=== PATIENT | female | born 1985 | race Caucasian/White ===

== ENCOUNTER → 2017-11-12 07:10 | Outpatient (CLI) | payer BC, SELFPAY | DX: R19.7 Diarrhea, unspecified (principal) | CPT/HCPCS: 82274; 83630; 87177; 87209; 87493; 87506 ==

== ENCOUNTER → 2017-11-23 14:22 | Outpatient (CLI) | payer BC, SELFPAY ==
[2017-11-23 17:00] LABS: Thyroid Stim Hormone (TSH) 0.45 uIU/mL (0.358-3.74)
== END ==
DX: E04.2 Nontoxic multinodular goiter (principal)
CPT/HCPCS: 36415; 84443

== ENCOUNTER 2017-11-30 06:28 | Emergency (ER) | payer BC, SELFPAY ==
[2017-11-30 06:30] VITALS: BP 128/74; PULSE 90; RESP 20; TEMP 36.8; O2SAT 96; BMI 22.4
--- NOTE | 2017-11-30 06:43 | CT_ITS ---
STUDY: CT ABDOMEN AND PELVIS WITHOUT CONTRAST REASON FOR EXAM: Female, 32 years old. Back pain with current UTI RADIATION DOSAGE (If Supplied By Facility): CTDIvol = ( 7.72 ) mGy, DLP = ( 393.70 ) mGycm TECHNIQUE: Transaxial images were obtained from the dome of the diaphragm to the symphysis pubis without oral contrast, and without intravenous contrast. Sagittal and coronal images were reconstructed. Individualized dose optimization techniques were used for this CT. COMPARISON: None. FINDINGS: Small amount of bibasilar airspace disease with trace right effusion. The visualized portions of the heart are within normal limits. Normal liver. Normal gallbladder and extrahepatic biliary system. Normal spleen. Normal pancreas. Normal bilateral adrenal glands. Normal right kidney. Normal left kidney. Normal visualized stomach. Normal small intestine. Normal colon. The appendix is visualized and appears normal. Mildly hyperdense material seen within the appendix; this could represent retained contrast from prior study versus appendicolith Normal abdominal aorta. Normal inferior vena cava. Normal retroperitoneum. Normal urinary bladder. Normal visualized uterus. Normal abdominal wall. Normal osseous structures. CT/Abdomen/Pelvis without Cont IMPRESSION: Small amount of nonspecific bibasilar airspace disease with trace right effusion. Infection is not fully excluded. Normal appendix. Remainder as above. Electronically Signed: Cricket Ivan DO at 8:05 EDT Tel , Service support ,
[2017-11-30] MEDS: Ondansetron 4 MG/2 ML Vial IV (06:52)
[2017-11-30] MEDS: 0.9% Normal Saline 1,000 ML 1000 ML IV (06:52)
[2017-11-30] MEDS: Ketorolac 30 MG/ML Syringe IV (06:53)
[2017-11-30] MEDS: Morphine 4 MG/ML Syringe IV (06:54)
[2017-11-30 07:06] LABS: Absolute Lymphocyte Count 2.28 X10^3/ul (0.83-4.51); Absolute Neutrophil Count 2.8 X10^3/uL (2.0-7.7); Basophil# 0.13 X10^3/uL; Basophil% 2.2 % (0-1); Eosinophil# 0.03 X10^3/uL; Eosinophils% 0.5 % (0-5); Hematocrit 38.6 % (37-47); Hemoglobin 13.2 g/dl (12.0-15.0); Lymphocyte # 2.28 X10^3/ul (4.0); Lymphocyte % 39.4 % (19-41); Mean Corp Hgb Conc 34.2 g/gl (32-36); Mean Corpuscular Hgb 29.3 pg (27.0-32.0); Mean Corpuscular Volume 85.8 fL (81-99); Mean Platelet Vol. 9.8 fl (6.2-12.0); Monocyte# 0.53 X10^3/uL; Monocyte% 9.2 % (0-10); Neutrophil # 2.81 X10^3/uL (2.7-7.7); Neutrophil % 48.5 % (47-70); Platelet Count 147 K/mm3 (150-450); RBC Distribution Width SD 36.9 fl (35.1-43.9); White Blood Count 5.8 K/mm3 (4.4-11.0)
[2017-11-30 07:08] LABS: Differential Indicated SCAN CRITERIA MET; POSITIVE COUNT NO; POSITIVE DIFFERENTIAL NO; POSITIVE MORPHOLOGY YES
[2017-11-30 07:14] LABS: Anion Gap 11 (5-15); BUN 10 mg/dL (7-18); BUN/Creat Ratio 10.9 RATIO (10-20); Calcium,Total 8.5 mg/dL (8.5-10.1); Chloride 102 mmol/L (98-107); Creatinine, Serum 0.92 mg/dL (0.55-1.02); EST Glomerular Filtration Rate 75 mL/min (>60); Est Glom Filt Rate - Afr Amer 91 mL/min (>60); Estimated Creatinine Clearance 78.99 ml/min; Glucose 132 mg/dL (74-106); Potassium 3.2 mmol/L (3.5-5.1); Sodium Level 135 mmol/L (136-145)
[2017-11-30 07:37] LABS: Pregnancy, Serum, hCG Quali. NEGATIVE Negative (0-9 Nonpreg)
--- NOTE | 2017-11-30 07:56 | ED.VISSUMM ---
- ER Visit Summary Date of Service: 11/30/17 Chief Complaint: Flank pain History of Present Illness: The patient is a 32 F for an 8 day history of back pain which wraps around to her right abdomen. She was seen at [facility]. Patient reportedly was called 2 days later with positive urine culture and was started on Macrobid and Keflex. Patient presents today because her pain is not improved. She had some nausea and vomiting this morning. She has not noted fever. Past history significant for hypothyroidism and PCOS. Last menstrual cycle surprise me 10 days ago. Physical Examination: Vital signs are unremarkable. Patient is afebrile. Patient sitting upright in bed no acute distress. Heart is regular rate and rhythm. Lung sounds are clear. Abdomen is soft with no anterior abdominal tenderness. Back examination reveals tenderness of the lower lumbar paraspinals bilaterally. She does have mild right CVA tenderness. Test Results: CBC reveals normal white count. Platelet count is 147,000. Chemistry studies significant for potassium 3.2. test negative. CT scan of the flank reveals small bibasilar airspace disease with trace right effusion. Normal kidneys. Normal appendix. Emergency Department Course and Treatment: Patient is given morphine, Toradol, Zofran, and IV fluids. Upon completion of blood work she is given 40 mEq of potassium chloride. Urine sample has been sent to the lab. This will be checked by oncoming physician. Treatment Plan: [] Disposition: Anticipated discharge Impression: Right flank pain This note was generated with [employer] dictation software. It may contain incorrect words, spelling, and punctuation that were not noted in review of the chart prior to signing ED Disposition - Plan for ED Patient: Chief Complaint: Flank Pain Referrals: Care Physician,No Primary [Primary Care Provider] -
[2017-11-30] MEDS: 0.9% Normal Saline 1,000 ML 150 ML IV (08:00)
[2017-11-30 08:45] LABS: Mucous, Urine 0 SEEN /hpf (<or=2+)
[2017-11-30 08:50] LABS: Color, Urine Yellow (Yellow); Glucose, Dipstick Normal (Normal); Ketone-Dipstick 15 mg/dl (Negative); Leukocyte Esterase-Dipstick 500 /ul (Negative); Nitrite-Dipstick Negative (Negative); Occult Blood-Urine Negative /ul (Negative); Protein-Dipstick Negative (Negative); Specific Gravity, Urine 1.005 (1.002-1.030); Urine Bilirubin Dipstick Negative (Negative); Urine Clarity Sl. Cloudy (Clear); Urine Urobilinogen Normal (Normal); Urine pH 6.5 (5.0 - 8.0)
[2017-11-30 09:02] LABS: Red Blood Cells-Urine 0-5 SEEN /hpf (0-5); Squamous Epithelial Cells - UA 0-5 SEEN /hpf (5-10); White Blood Cells 10-25 SEEN /hpf (0-5)
[2017-11-30 09:03] LABS: Bacteria 1+ /hpf (None Seen)
--- NOTE | 2017-11-30 09:16 | US_ITS ---
STUDY: ABDOMINAL ULTRASOUND - RIGHT UPPER QUADRANT REASON FOR VISIT: Female, 32 years old. Right upper quadrant pain TECHNIQUE: Ultrasound evaluation of the right upper quadrant was performed with real-time and static mcpherson-scale imaging. TECHNICAL QUALITY: Adequate. COMPARISON: None. FINDINGS: Liver: The liver measures 13.9 cm. There is normal echogenicity of the liver. The bile ducts are within normal limits. There is hepatic color flow. The direction of portal flow is hepatopetal. There is no demonstrated mass lesion. Gallbladder: Normal distended gallbladder. The gallbladder wall measures 3 mm. There is a negative sonographic Mcgarry's sign. There is no pericholecystic fluid. There are no gallstones. Common Bile Duct (C.B.D.): The common bile duct measures 3 mm. Pancreas: Normal size of the head, body and tail of the pancreas. There is normal echogenicity of the pancreas. There is no demonstrated pancreatic mass or cyst. Right Kidney: Normal size of the right kidney. The right kidney measures 11.1 cm. Normal renal cortex. The right cortex measures 1.2 cm. There is no demonstrated renal mass or cyst. There is no right hydronephrosis. US/Gallbladder IMPRESSION: Normal right upper quadrant ultrasound examination. Electronically Signed: Cricket Ivan DO at 10:16 EDT Tel , Service support ,
[2017-11-30 09:28] LABS: Lipase 148 U/L (73-393)
[2017-11-30 09:41] LABS: AST(SGOT) 73 U/L (15-37); Alanine Aminotransfer ALT/SGPT 128 U/L (13-56); Albumin, Serum 3.2 g/dL (3.2-5.0); Alkaline Phosphatase 129 U/L (45-117); Bilirubin, Direct 0.17 mg/dL (0.00-0.30); Globulin 3.9 g/dL (2.2-4.2); Protein, Total 7.1 g/dL (6.4-8.2)
--- NOTE | 2017-11-30 11:19 | ED.VISSUMM ---
- ER Visit Summary Date of Service: 11/30/17 Chief Complaint: [] History of Present Illness: The patient is a 32 F [] Physical Examination: [] Test Results: [] Emergency Department Course and Treatment: [] Treatment Plan: [] Disposition: [] Impression: [] This note was generated with [employer] dictation software. It may contain incorrect words, spelling, and punctuation that were not noted in review of the chart prior to signing ED Disposition - Plan for ED Patient: Disposition: Home or Assisted Living Chief Complaint: Flank Pain Instructions: ED Acute Pain [facility], ED UTI Cystitis Female Prescriptions: Naproxen [Naprosyn] 500 mg PO BID #14 tab Referrals: Care Physician,No Primary [Primary Care Provider] - Chet Kim MD [STAFF PHYSICIAN] - 1-2 Days if not improving Additional Instructions: Continue to take nitrofurantoin for urinary tract infection.
--- NOTE | 2017-11-30 11:23 | ED.DCSUM_ITS ---
- ER Visit Summary Date of Service: 11/30/17 Chief Complaint: [] History of Present Illness: The patient is a 32 F [] Physical Examination: [] Test Results: [] Emergency Department Course and Treatment: [] Treatment Plan: [] Disposition: [] Impression: [] This note was generated with [employer] dictation software. It may contain incorrect words, spelling, and punctuation that were not noted in review of the chart prior to signing ED Disposition - Plan for ED Patient: Disposition: Home or Assisted Living Chief Complaint: Flank Pain Instructions: ED Acute Pain [facility], ED UTI Cystitis Female Prescriptions: Naproxen [Naprosyn] 500 mg PO BID #14 tab Referrals: Care Physician,No Primary [Primary Care Provider] - Chet Kim MD [STAFF PHYSICIAN] - 1-2 Days if not improving Additional Instructions: Continue to take nitrofurantoin for urinary tract infection.
[2017-11-30 12:10] VITALS: BP 122/74; PULSE 68; RESP 15; O2SAT 98
== END 2017-11-30 12:11 | disposition home or self-care (01) ==
PROVIDERS: Emergency Medicine; Emergency Provider Emergency Medicine
DX: R10.11 Right upper quadrant pain (principal); B96.89 Other specified bacterial agents as the cause of diseases classified elsewhere; N39.0 Urinary tract infection, site not specified; R74.0 Nonspecific elevation of levels of transaminase and lactic acid dehydrogenase [LDH]; E03.9 Hypothyroidism, unspecified; Z79.899 Other long term (current) drug therapy
CPT/HCPCS: 74176; 76705; 80048; 80076; 81001; 83690; 84703; 85025; 96361; 96374; 96375; 99283; J7030; A4216; J2405

== ENCOUNTER → 2017-12-04 09:29 | Outpatient (CLI) | payer BC, SELFPAY ==
[2017-12-04 10:52] LABS: Alanine Aminotransfer ALT/SGPT 301 U/L (13-56); Alkaline Phosphatase 276 U/L (45-117)
[2017-12-04 12:17] LABS: Mucous, Urine 0 SEEN /hpf (<or=2+)
[2017-12-04 14:18] LABS: Absolute Lymphocyte Count 4.68 X10^3/ul (0.83-4.51); Absolute Neutrophil Count 2.5 X10^3/uL (2.0-7.7); Basophil# 0.25 X10^3/uL; Basophil% 3.3 % (0-1); Eosinophil# 0.01 X10^3/uL; Eosinophils% 0.1 % (0-5); Hematocrit 39.5 % (37-47); Lymphocyte # 4.68 X10^3/ul (4.0); Lymphocyte % 60.9 % (19-41); Mean Corp Hgb Conc 32.9 g/gl (32-36); Mean Corpuscular Hgb 28.8 pg (27.0-32.0); Mean Corpuscular Volume 87.4 fL (81-99); Mean Platelet Vol. 10.3 fl (6.2-12.0); Monocyte# 0.23 X10^3/uL; Neutrophil % 32.6 % (47-70); POSITIVE COUNT NO; POSITIVE DIFFERENTIAL NO; POSITIVE MORPHOLOGY YES; Platelet Count 170 K/mm3 (150-450); RBC Distribution Width SD 41.5 fl (35.1-43.9); Red Blood Count 4.52 M/mm3 (4.2-5.4); White Blood Count 7.7 K/mm3 (4.4-11.0)
[2017-12-04 14:19] LABS: Differential Indicated SCAN CRITERIA MET
[2017-12-04 14:28] LABS: ALB/GLOB Ratio 0.7 RATIO (0.9-2.4); AST(SGOT) 171 U/L (15-37); Alanine Aminotransfer ALT/SGPT 298 U/L (13-56); Albumin, Serum 3.2 g/dL (3.2-5.0); Alkaline Phosphatase 263 U/L (45-117); Anion Gap 10 (5-15); BUN 9 mg/dL (7-18); BUN/Creat Ratio 9.6 RATIO (10-20); Calcium,Total 8.8 mg/dL (8.5-10.1); Chloride 104 mmol/L (98-107); Creatinine, Serum 0.94 mg/dL (0.55-1.02); EST Glomerular Filtration Rate 74 mL/min (>60); Est Glom Filt Rate - Afr Amer 89 mL/min (>60); Globulin 4.4 g/dL (2.2-4.2); Glucose 169 mg/dL (74-106); Magnesium 2.4 mg/dL (1.6-2.6); Potassium 3.5 mmol/L (3.5-5.1); Protein, Total 7.6 g/dL (6.4-8.2); Sodium Level 135 mmol/L (136-145)
[2017-12-04 14:39] LABS: Differential Comment SCANNED; Reactive Lymphocyte 1+
[2017-12-04 14:40] LABS: Color, Urine Amber (Yellow); Glucose, Dipstick 100 mg/dl (Normal); Ketone-Dipstick 5 mg/dl (Negative); Leukocyte Esterase-Dipstick 100 /ul (Negative); Nitrite-Dipstick Negative (Negative); Occult Blood-Urine 150 /ul (Negative); Protein-Dipstick 100 mg/dl (Negative); Specific Gravity, Urine 1.025 (1.002-1.030); Urine Clarity Turbid (Clear); Urine Urobilinogen 12 mg/dl (Normal)
[2017-12-04 14:46] LABS: Urine Bilirubin Dipstick 6 mg/dL (Negative)
[2017-12-04 14:50] LABS: Amorphous Sediment 2+; Bacteria 2+ /hpf (None Seen); Calcium Oxalate Crystals Ur 1+ /hpf (<or=2+); Red Blood Cells-Urine 10-25 SEEN /hpf (0-5); Squamous Epithelial Cells - UA 0-5 SEEN /hpf (5-10); White Blood Cells 10-25 SEEN /hpf (0-5)
[2017-12-05 04:14] LABS: HEPATITIS B SURFACE AG Negative (Negative); Hepatitis A AB, Total Negative (Negative); Hepatitis A IgM Antibody Negative (Negative); Hepatitis B Core AB IgM Negative (Negative); Hepatitis B Core Ab Total Negative (Negative); Hepatitis C Ab <0.1 s/co ratio (0.0-0.9)
[2017-12-07 10:50] LABS: Hep B Surface Antibodies Reactive (.)
== END ==
PROVIDERS: Family Medicine; Visit Provider Nurse Practitioner Family
DX: N39.0 Urinary tract infection, site not specified (principal); R19.8 Other specified symptoms and signs involving the digestive system and abdomen; R10.11 Right upper quadrant pain; R19.7 Diarrhea, unspecified; R63.0 Anorexia
CPT/HCPCS: 36415; 80053; 81001; 83735; 84075; 84460; 85025; 86704; 86705; 86706; 86708; 86709; 86803; 87086; 87088; 87340

== ENCOUNTER → 2017-12-07 09:11 | Outpatient (CLI) | payer BC, SELFPAY ==
[2017-12-07 10:28] LABS: Absolute Lymphocyte Count 5.99 X10^3/ul (0.83-4.51); Absolute Neutrophil Count 2.3 X10^3/uL (2.0-7.7); Basophil# 0.31 X10^3/uL; Basophil% 3.3 % (0-1); Eosinophil# 0.04 X10^3/uL; Eosinophils% 0.4 % (0-5); Hemoglobin 13.7 g/dl (12.0-15.0); Lymphocyte # 5.99 X10^3/ul (4.0); Lymphocyte % 63.7 % (19-41); Mean Corp Hgb Conc 33.4 g/gl (32-36); Mean Corpuscular Hgb 28.8 pg (27.0-32.0); Mean Corpuscular Volume 86.3 fL (81-99); Mean Platelet Vol. 10.3 fl (6.2-12.0); Monocyte# 0.77 X10^3/uL; Monocyte% 8.2 % (0-10); Neutrophil # 2.27 X10^3/uL (2.7-7.7); Neutrophil % 24.1 % (47-70); POSITIVE DIFFERENTIAL YES; Platelet Count 205 K/mm3 (150-450); RBC Distribution Width CV 13.5 % (11.6-14.6); Red Blood Count 4.75 M/mm3 (4.2-5.4); White Blood Count 9.4 K/mm3 (4.4-11.0)
[2017-12-07 10:29] LABS: Differential Indicated SCAN CRITERIA MET; POSITIVE COUNT NO; POSITIVE MORPHOLOGY YES
[2017-12-07 10:32] LABS: Erythrocyte Sedimentation Rate 52 mm/hr (0-20)
[2017-12-07 10:49] LABS: Reactive Lymphocyte 1+
[2017-12-07 10:57] LABS: ALB/GLOB Ratio 0.6 RATIO (0.9-2.4); AST(SGOT) 263 U/L (15-37); Alanine Aminotransfer ALT/SGPT 481 U/L (13-56); Alkaline Phosphatase 324 U/L (45-117); Amylase 43 U/L (25-115); Anion Gap 11 (5-15); BUN 11 mg/dL (7-18); BUN/Creat Ratio 13.4 RATIO (10-20); Calcium,Total 9.1 mg/dL (8.5-10.1); Chloride 99 mmol/L (98-107); Creatinine, Serum 0.82 mg/dL (0.55-1.02); EST Glomerular Filtration Rate 86 mL/min (>60); Est Glom Filt Rate - Afr Amer 104 mL/min (>60); Free T3 2.8 pg/mL (2.18-3.98); Glucose 91 mg/dL (74-106); Lipase 202 U/L (73-393); Potassium 3.7 mmol/L (3.5-5.1); Sodium Level 136 mmol/L (136-145); T4 Free Direct 1.88 ng/dL (0.76-1.46); Thyroid Stim Hormone (TSH) 0.43 uIU/mL (0.358-3.74)
[2017-12-08 11:00] LABS: H. Pylori Antibody (IgG) 0.57 (0.00-0.79)
== END ==
PROVIDERS: Visit Provider Family Medicine
DX: E06.3 Autoimmune thyroiditis (principal); K21.9 Gastro-esophageal reflux disease without esophagitis; R10.9 Unspecified abdominal pain
CPT/HCPCS: 36415; 80053; 82150; 83690; 84439; 84443; 84481; 85025; 85652; 86140; 86677; 87086; 87088

== ENCOUNTER → 2019-08-26 15:11 | Outpatient (CLI) | payer OTHER, SELFPAY ==
[2019-08-26 13:34] VITALS: BMI 24.5
[2019-08-26 18:04] LABS: ALB/GLOB Ratio 1.1 RATIO (0.9-2.4); AST(SGOT) 18 U/L (15-37); Alanine Aminotransfer ALT/SGPT 37 U/L (13-56); Albumin, Serum 4.2 g/dL (3.2-5.0); Alkaline Phosphatase 56 U/L (45-117); Anion Gap 7 (5-15); BUN 13 mg/dL (7-18); BUN/Creat Ratio 17.2 RATIO (10-20); Calcium,Total 9.3 mg/dL (8.5-10.1); Chloride 106 mmol/L (98-107); Cholesterol 204 mg/dL (200); Creatinine, Serum 0.76 mg/dL (0.55-1.02); EST Glomerular Filtration Rate 93 mL/min (>60); Est Glom Filt Rate - Afr Amer 113 mL/min (>60); Estradiol 47.9 pg/mL; Follicle Stimulating Hormone 7.2 mIU/mL; Globulin 3.8 g/dL (2.2-4.2); Glucose 97 mg/dL (74-106); High Density Lipoprotein 67 mg/dL; Luteinizing Hormone 8.6 mIU/mL; Prolactin 5.6 ng/mL; Sodium Level 140 mmol/L (136-145); Triglycerides 63 mg/dL; Very Low Density Lipoprotein 13 mg/dL (5-40)
[2019-09-01 12:07] LABS: Testosterone, % Free 0.92 % (0.50-2.80); Testosterone, Free 0.22 ng/dL (0.10-0.85); Testosterone, Total 24 ng/dL (8-48)
[2019-09-02 12:49] LABS: DHEA Sulfate 87.4 ug/dL (84.8-378.0)
== END ==
PROVIDERS: Referring Provider Internal Medicine Endocrinology, Diabetes & Metabolism; Visit Provider Internal Medicine Endocrinology, Diabetes & Metabolism
DX: E28.2 Polycystic ovarian syndrome (principal); E03.9 Hypothyroidism, unspecified; Z86.39 Personal history of other endocrine, nutritional and metabolic disease
CPT/HCPCS: 36415; 80053; 80061; 82627; 82670; 83001; 83002; 84146; 84402; 84403; 84439; 84443; 82626